=== PATIENT | female | born 1960 | race Caucasian/White ===

== ENCOUNTER 2018-01-24 04:54 | Emergency (ER) | payer OTHER ==
[2018-01-24] MEDS ORDERED: Triple Antibiotic 0.94 gm Pkt TP STA (05:06)
[2018-01-24] MEDS ORDERED: Bacitracin pkt 1 gm Pkt TP ONE (05:09)
[2018-01-24] MEDS ORDERED: Acetaminophen 500 MG TAB ONE (05:12)
[2018-01-24] MEDS ORDERED: Triple Antibiotic 0.94 gm Pkt TP ONE (05:12)
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
== END 2018-01-24 05:18 | disposition home or self-care (01) ==
LOC: EEVIPCON 04:54 → ER 04:54
DX: S00.11XA Contusion of right eyelid and periocular area, initial encounter (principal); S09.93XA Unspecified injury of face, initial encounter; S09.90XA Unspecified injury of head, initial encounter; W50.0XXA Accidental hit or strike by another person, initial encounter; Y93.89 Activity, other specified; Y92.89 Other specified places as the place of occurrence of the external cause; Y99.8 Other external cause status
CPT/HCPCS: Z7502; Z7610